=== PATIENT | male | born 2000 | race Caucasian/White ===

== ENCOUNTER 2023-04-07 06:56 | Emergency (ER) | payer OTHER ==
[~2023-04-07] VITALS: Ht 182.9 cm; Wt 77.3 kg
[2023-04-07] MEDS ORDERED: PENI500T PO (07:06)
[2023-04-07] MEDS ORDERED: NS 1,000 ML IV ONE (09:05)
[2023-04-07] MEDS ORDERED: AMPICILLIN SOD/SULBACTAM SOD 3 GM in D5W MINI-BAG PLUS 100 ML IV ONE (09:05)
[2023-04-07] MEDS ORDERED: dexAMETHasone 20MG/5ML VIAL IV ONE (09:05)
[2023-04-07 09:52] LABS: HEMATOCRIT 48.6 % (42.0-52.0); HEMOGLOBIN 15.9 g/dl (13.5-17.5); MEAN CORPUSCULAR HEMOGLOBIN 28.3 pg (27.0-33.0); MEAN CORPUSCULAR HGB CONC 32.7 g/dl (32.0-36.5); MEAN CORPUSCULAR VOLUME 86.6 fl (80.0-96.0); PLATELET COUNT, AUTOMATED 231 10^3/uL (150-450); RED BLOOD COUNT 5.61 10^6/uL (4.30-6.10); WHITE BLOOD COUNT 13.2 10^3/uL (4.0-10.0)
[2023-04-07 10:08] LABS: ERYTHROCYTE SEDIMENTATION RATE 28 mm/hr (0-15)
[2023-04-07 10:22] LABS: ATYPICAL LYMPH 39 % (0-5); BASOPHILS 1 % (0-1); LYMPHOCYTES 4 % (16-44); MONOCYTES 10 % (0-5); NEUTROPHILS 46 % (28-66)
[2023-04-07 10:23] LABS: MONO REFLEX EBV COMP POSITIVE (NEGATIVE); PLATELET ESTIMATE NORMAL (NORMAL)
[2023-04-07 11:43] LABS: BLOOD UREA NITROGEN 12 MG/DL (9-23); CALCIUM LEVEL 8.2 MG/DL (8.5-10.1); CARBON DIOXIDE LEVEL 27 MMOL/L (20-31); CHLORIDE LEVEL 104 MMOL/L (98-107); CREATININE FOR GFR 0.83 MG/DL (0.70-1.30); GLOMERULAR FILTRATION RATE > 60.0 (>60); GLUCOSE, FASTING 87 MG/DL (60-100); POTASSIUM SERUM 5.1 MMOL/L (3.5-5.1); SODIUM LEVEL 139 MMOL/L (136-145)
[2023-04-07] MEDS ORDERED: DEXA4TA PO (11:54)
[2023-04-07 12:04] VITALS: BP 111/67; TEMP 97.6; O2SAT 98
== END 2023-04-07 12:11 | disposition home or self-care (01) ==
LOC: M ED 06:56
DX: J02.0 Streptococcal pharyngitis (principal); B27.90 Infectious mononucleosis, unspecified without complication; F17.290 Nicotine dependence, other tobacco product, uncomplicated
CPT/HCPCS: 36415; 80048; 83605; 85025; 85652; 86140; 86308; 87040; 96365; 96366; 99283; J0295; J1100